=== PATIENT | female | born 1935 | race Caucasian/White ===

== ENCOUNTER 2017-05-23 05:25 | Inpatient (IN) | payer MEDICARE ==
[~2017-05-23 05:25] MED LIST: BUPIVACAINE INJ/PF LIPOSOME/PF 266 MG/20 ML SDV IJ PRN; CEFAZOLIN INJ 1 GM VIAL IV PRN; IBUPROFEN 800 MG/NS 250 ML IV PRN; LACTATED RINGERS 1000 ML IV PRN; LANSOPRAZOLE 15 MG TAB.RAP.DR PO PRN; LIDOCAINE 0.5% INJ-PF (5 MG/ML) 50 ML SDV SUBCUT PRN; OXYCODONE HCL SR 10 MG TABLET PO PRN; VANCOMYCIN HCL 1,000 MG in DEXTROSE 5%-WATER 250 ML IV PRN
[2017-05-23] MEDS ORDERED: LIDOCAINE 2% INJ-PF (20 MG/ML) 10 ML AMPUL ONE (06:41)
[2017-05-23] MEDS ORDERED: FENTANYL CITRATE INJ/PF 100 MCG/2 ML AMPUL ONE ×2 (06:42→09:54)
[2017-05-23] MEDS ORDERED: KETAMINE HCL INJ 500 MG/10 ML VIAL ONE (06:42)
[2017-05-23] MEDS ORDERED: MIDAZOLAM 2 MG/2 ML INJ ONE (06:42)
[2017-05-23] MEDS ORDERED: EPHEDRINE SULFATE INJ 50 MG/1 ML AMPULE ONE (06:43)
[2017-05-23] MEDS ORDERED: TRANEXAMIC ACID INJ/PF 1,000 MG/10 ML SDV IV ONE ×3 (06:43→10:06)
[2017-05-23] MEDS ORDERED: PROPOFOL INJ 200 MG/20 ML VIAL IV ONE (06:43)
[2017-05-23] MEDS ORDERED: ONDANSETRON HCL INJ/PF 4 MG/2 ML SDV ONE (06:43)
[2017-05-23] MEDS ORDERED: THROMBIN (BOVINE) 5000 UNIT EPITAXIS KIT ONE (06:49)
[2017-05-23] MEDS ORDERED: BUPIVACAINE INJ/PF LIPOSOME/PF 266 MG/20 ML SDV ONE (06:49)
[2017-05-23] MEDS ORDERED: THROMBIN (BOVINE) TOPICAL 20000 UNIT VIAL ONE (06:49)
[2017-05-23] MEDS ORDERED: MORPHINE SULFATE 10 MG/ML INJ IV PRN ×3 (07:49→09:43)
[2017-05-23] MEDS ORDERED: PROMETHAZINE HCL INJ 25 MG/1 ML VIAL IV PRN ×2 (07:49)
[2017-05-23] MEDS ORDERED: OXYCODONE-ACETAMINOPHEN 5-325 MG TABLET PO PRN ×2 (07:49)
[2017-05-23] MEDS ORDERED: DIPHENHYDRAMINE HCL 50 MG/ML VIAL IV PRN ×2 (07:49→09:43)
[2017-05-23] MEDS ORDERED: FENTANYL CITRATE INJ/PF 100 MCG/2 ML AMPUL IV PRN ×3 (07:49)
[2017-05-23] MEDS ORDERED: MEPERIDINE HCL/PF INJ 25 MG/1 ML DISP.SYRIN IV PRN (07:49)
[2017-05-23] MEDS ORDERED: ONDANSETRON HCL INJ/PF 4 MG/2 ML SDV IV PRN (07:49)
[2017-05-23] MEDS ORDERED: VANCOMYCIN HCL INJ 1000 MG VIAL ONE (09:10)
--- NOTE | 2017-05-23 09:42 | Operative Report ---
Operative Report DATE OF SURGERY: 05/23/17 PREOPERATIVE DIAGNOSIS: Failed left hip arthroplasty OPERATION: Revision left hip arthroplasty. Sciatic neuro lysis SURGEON: WILSON COON ANESTHESIA: Spinal TISSUE REMOVED OR ALTERED: Cultures to microbiology, implants to pathology ESTIMATED BLOOD LOSS: 200 PROCEDURE: Implants used: Kyree modular alevism stem 1 95 x 16 mm, 25 mm standard proximal body, 32 mm chrome cobalt head, 20 high wall [place] acetabular liner With the patient in the right lateral decubitus position on the operating table the left lower extremity hindquarter prepped and draped in a sterile fashion. A curvilinear incision made over the greater trochanter line with the previous approach the hip. Posterior approach is performed upon entering the capsule cultures are obtained. Sciatic nerve is traced from the sciatic notch down to the gluteal sling is protected throughout its course. Hip is dislocated and femoral head disimpacted. Debridement of the posterior aspect of the greater trochanteric region of the femur allows access to a hole in the femoral implant. This is used to connect an extractor and the extractor was used to remove the stem uneventfully. The acetabulum was exposed. The acetabular liner was removed using an osteotome. It is inspected. Is a 10 high wall 32 mm liner. The where superior and a high wall was posterior. A decision made at this point not to revise the acetabular component primarily at the patient's request. And instead I lies a [address] place this directly superior. There is impacted into position. Attention was turned back to the femur. In attempting to instrument the femoral canal it is clear that the existing stem had either broach the cortex already or had significantly weakened. The initial attempt instrument the canal was lead with an extra osseous extension. This is presumably related to the shelf performed at the end of the implant. Subsequently an extended osteotomies performed and access to the distal canal is assured. The distal canal secured with 2 distal cables. Initially the canal is open using flexible reamers until a 14 mm reamer is passed. Hopefully the conical reamers of the modular alevism stem are used beginning at 13 and increasing until 16 forward intended depth of 195 mm. This is calculated to bypass the cortical defect. Subsequently a 16 x 1 95 stem was impacted into position and its position and size are determined with intraoperative fluoroscopy and felt to be adequate. The proximal canal is then reamed and a 25 standard proximal body is impacted onto the alevism stem. A trial 32 mm head +0 neck extension is used and the hip was reduced. This re-creates preoperative leg length and provides adequate stability. The hip is dislocated one more time. The final chrome cobalt head, 32 mm standard neck is impacted onto the trunnion and the hip was reduced. It scope secured with pulse lavage. Is closed in layers using interrupted Vicryl followed by angeles. A sterile compressive dressing was applied and the patient's return to the PACU in satisfactory condition.
[2017-05-23] MEDS ORDERED: ONDANSETRON 4 MG TAB.RAPDIS PO PRN ×2 (09:43→10:30)
[2017-05-23] MEDS ORDERED: (PENDING PHARMACY ID) (Lisinopril/Hydrochlorothiazide [Lisinopril-Hctz 20-12.5 Mg Tab] 2 T PO SCH (10:00)
[2017-05-23] MEDS ORDERED: (PENDING PHARMACY ID) (Omeprazole [Omeprazole] 1 CAP) PO SCH (10:00)
[2017-05-23] MEDS ORDERED: GABAPENTIN 400 MG CAPSULE PO SCH (10:00)
[2017-05-23] MEDS ORDERED: FERROUS GLUCONATE PO SCH (10:00)
[2017-05-23] MEDS ORDERED: (PENDING PHARMACY ID) (Calcium Carbonate/Vitamin D3 [Calcium 500-Vit D3 200 Caplet] 1 TAB) PO SCH (10:00)
--- NOTE | 2017-05-23 10:43 | RADIOLOGY REPORT (SQ) ---
EXAM DESCRIPTION: FEMUR LEFT COMPLETED DATE/TIME: 05/23/2017 10:28 am REASON FOR STUDY: POST OP REVISION T84.091A [facility] COMPL OF INTERNAL LEFT HIP PROSTHESIS, INIT EN COMPARISON: None. NUMBER OF VIEWS: One view. TECHNIQUE: Two radiographic images acquired of the left femur to include hip and knee in at least on e projection. LIMITATIONS: None. FINDINGS: There are postsurgical changes with a left hip prosthesis in place. There is a fixation r od in place in the femur. There is a distal femoral fracture. There are no old films available for comparison. IMPRESSION: Postsurgical changes as described. Distal left femur fracture. TECHNICAL DOCUMENTATION: JOB ID: [id number] [employer]- All Rights Reserved
[2017-05-23] MEDS ORDERED: ACETAMINOPHEN 100 ML IV ONE (11:02)
--- NOTE | 2017-05-23 11:38 | RADIOLOGY REPORT (SQ) ---
EXAM DESCRIPTION: HIP IN OPERATING RM COMPLETED DATE/TIME: 05/23/2017 10:51 am REASON FOR STUDY: LEFT HIP REVISION ASSISTED WITH FLUORO IN OR T84.091A [facility] COMPL OF INTERNAL LEFT HIP PROSTHESIS, INIT EN COMPARISON: None. FLUOROSCOPY TIME: Less than 1 minute Spot images saved to PACS. TECHNIQUE: Intra-operative images acquired during surgical procedure to evaluate progress. NUMBER OF IMAGES: 6 LIMITATIONS: None. FINDINGS: Fluoroscopy was provided for intraoperative procedure. Please refer to the operative repo rt for further discussion. IMPRESSION: IMAGE(S) OBTAINED DURING PROCEDURE. COMMENT: Quality ID 145: Final reports for procedures using fluoroscopy that document radiation exp osure indices, or exposure time and number of fluorographic images (if radiation exposure indices are not available) Please consult full operative report of the attending physician for description of the procedure. TECHNICAL DOCUMENTATION: JOB ID: [id number] [employer]- All Rights Reserved
[2017-05-23] MEDS: GABAPENTIN 400 MG CAPSULE PO SCH ×3 (12:43→23:15)
[2017-05-23] MEDS: MORPHINE SULFATE 10 MG/ML INJ IV PRN ×2 (12:43→18:47)
[2017-05-23] MEDS: OXYCODONE HCL IR 5 MG TABLET PO PRN (13:31)
[2017-05-23] MEDS: IBUPROFEN 800 MG in NORMAL SALINE 250 ML IV SCH ×2 (13:46→23:16)
[2017-05-23 15:27] LABS: HEMATOCRIT 27.9 % (36.0-47.0); HEMOGLOBIN 9.4 g/dL (12.0-15.5); HGB HCT DIFFERENCE 0.3; MEAN CORPUSCULAR HEMOGLOBIN 31.8 pg (27.0-33.4); MEAN CORPUSCULAR HGB CONC 33.5 g/dL (32.0-36.0); MEAN CORPUSCULAR VOLUME 95 fl (80-97); RED BLOOD COUNT 2.94 10^6/uL (3.72-5.28); RED CELL DISTRIBUTION WIDTH 13.2 % (11.5-14.0); WHITE BLOOD COUNT 12.2 10^3/uL (4.0-10.5)
[2017-05-23 15:33] LABS: ANION GAP 8 (5-19); BLOOD UREA NITROGEN 31 mg/dL (7-20); CALCIUM 8.4 mg/dL (8.4-10.2); CARBON DIOXIDE 25 mmol/L (22-30); CHLORIDE 102 mmol/L (98-107); CREATININE RESULT 1.24 mg/dL (0.52-1.25); GLUCOSE 137 mg/dL (75-110); POTASSIUM 3.9 mmol/L (3.6-5.0); SODIUM 134.9 mmol/L (137-145)
[2017-05-23] MEDS ORDERED: RINGERS SOLUTION,LACTATED 500 ML IV ONE (16:00)
[2017-05-23] MEDS: RINGERS SOLUTION,LACTATED 1,000 ML IV PRN ×2 (16:03→16:05)
[2017-05-23] MEDS: ONDANSETRON HCL INJ/PF 4 MG/2 ML SDV IV PRN (20:54)
[2017-05-23] MEDS: MORPHINE SULFATE 10 MG/ML INJ IM PRN ×2 (20:54→22:20)
[2017-05-23] MEDS ORDERED: VANCOMYCIN HCL 1,000 MG in DEXTROSE 5%-WATER 250 ML IV ONE (21:43)
[2017-05-23] MEDS: RIVAROXABAN 10 MG TABLET PO SCH (21:45)
[2017-05-23] MEDS: SIMVASTATIN 10 MG TABLET PO SCH (21:45)
[2017-05-23] MEDS ORDERED: OXYCODONE HCL SR 10 MG TABLET PO SCH (22:00)
[2017-05-24] MEDS: MORPHINE SULFATE 10 MG/ML INJ IM PRN ×4 (00:11→15:25)
[2017-05-24] MEDS: ONDANSETRON HCL INJ/PF 4 MG/2 ML SDV IV PRN ×2 (03:52→23:37)
[2017-05-24] MEDS: LANSOPRAZOLE 30 MG TAB.RAP.DR PO SCH (05:41)
[2017-05-24] MEDS: IBUPROFEN 800 MG in NORMAL SALINE 250 ML IV SCH ×3 (05:41→23:37)
[2017-05-24] MEDS: GABAPENTIN 400 MG CAPSULE PO SCH ×3 (05:43→18:06)
[2017-05-24 06:56] LABS: HEMATOCRIT 29.8 % (36.0-47.0); HEMOGLOBIN 9.7 g/dL (12.0-15.5); HGB HCT DIFFERENCE -0.7; MEAN CORPUSCULAR HEMOGLOBIN 31.3 pg (27.0-33.4); MEAN CORPUSCULAR HGB CONC 32.5 g/dL (32.0-36.0); MEAN CORPUSCULAR VOLUME 96 fl (80-97); RED BLOOD COUNT 3.09 10^6/uL (3.72-5.28); RED CELL DISTRIBUTION WIDTH 13.3 % (11.5-14.0); WHITE BLOOD COUNT 9.4 10^3/uL (4.0-10.5)
[2017-05-24] MEDS ORDERED: NORMAL SALINE 1000 ML 500 ML IV ONE (07:00)
--- NOTE | 2017-05-24 07:01 | PDOC PROGRESS REPORT ---
Subjective Progress Note for:: 05/24/17 Subjective:: Patient complaining of epigastric distress radiating to the left pectoral region. She attributes this to her hiatal hernia and has experienced in the past. Normally she is able to get up and ambulate in the distress passes. However now on her nonambulatory status her issues continue. Physical Exam Vital Signs: Temp Pulse Resp BP Pulse Ox 36.3 C 97 18 127/40 H 98 05/24/17 03:47 05/24/17 03:47 05/24/17 03:47 05/24/17 03:47 05/24/17 03:47 Intake & Output 05/22/17 05/23/17 05/24/17 06:59 06:59 06:59 Intake Total 0 99378 Output Total 4570 Balance 0 6613 General appearance: PRESENT: mild distress Head exam: PRESENT: normocephalic Respiratory exam: PRESENT: unlabored Cardiovascular exam: PRESENT: RRR Pulses: PRESENT: +1 pedal pulses bilateral Vascular exam: PRESENT: normal capillary refill GI/Abdominal exam: PRESENT: soft Rectal exam: PRESENT: deferred Extremities exam: PRESENT: other - Right lower extremity dressing clean dry and intact. Leg lengths are equal. Distal neurovascular examination is intact. Neurological exam: PRESENT: alert, awake, oriented to person, oriented to place , oriented to time, oriented to situation. ABSENT: motor sensory deficit Psychiatric exam: PRESENT: appropriate affect, normal mood. ABSENT: homicidal ideation, suicidal ideation Skin exam: PRESENT: dry, intact, warm. ABSENT: cyanosis, rash Results Laboratory Results: 05/23/17 05/23/17 15:04 15:13 WBC 12.2 H RBC 2.94 L Hgb 9.4 L Hct 27.9 L MCV 95 MCH 31.8 MCHC 33.5 RDW 13.2 Plt Count 221 Sodium 134.9 L Potassium 3.9 Chloride 102 Carbon Dioxide 25 Anion Gap 8 BUN 31 H Creatinine 1.24 Est GFR ( Amer) 50 L Est GFR (Non-Af Amer) 42 L Glucose 137 H Calcium 8.4 Impressions: Femur X-Ray 05/23/17 00:00 IMPRESSION: Postsurgical changes as described. Distal left femur fracture. Hip X-Ray 05/23/17 00:00 IMPRESSION: IMAGE(S) OBTAINED DURING PROCEDURE. Status: Imported from PACS Assessment & Plan - Diagnosis (1) Mechanical complication of hip prosthesis Is this a current diagnosis for this admission?: Yes Plan: 81-year-old white female status post left revision hip arthroplasty for failed implant now with epigastric distress. Plan will be to convert from Zofran to Phenergan and see if we can alleviate some of her discomfort this way. We will also restrict the patient with touchdown weightbearing restriction on the left lower extremity. - Time Time Spent with patient: 15-24 minutes Anticipated discharge: Other Within: Other
[2017-05-24 07:17] LABS: ANION GAP 10 (5-19); BLOOD UREA NITROGEN 37 mg/dL (7-20); CALCIUM 8.7 mg/dL (8.4-10.2); CARBON DIOXIDE 25 mmol/L (22-30); CHLORIDE 101 mmol/L (98-107); CREATININE RESULT 1.67 mg/dL (0.52-1.25); GLUCOSE 119 mg/dL (75-110); POTASSIUM 4.4 mmol/L (3.6-5.0); SODIUM 136.1 mmol/L (137-145)
[2017-05-24] MEDS ORDERED: PROMETHAZINE HCL INJ 25 MG/1 ML VIAL IV PRN ×2 (07:32→07:55)
[2017-05-24] MEDS: LEVOTHYROXINE SODIUM 0.025 MG TABLET PO SCH (08:38)
[2017-05-24] MEDS: CALCIUM CARBONATE 250 MG/VITAMIN D3 125 UNIT TABLET PO SCH (10:57)
[2017-05-24] MEDS: FUROSEMIDE 40 MG TABLET PO SCH (10:57)
[2017-05-24] MEDS: LISINOPRIL 10 MG TABLET PO SCH (10:57)
[2017-05-24] MEDS: CITALOPRAM HYDROBROMIDE 20 MG TABLET PO SCH (10:57)
[2017-05-24] MEDS: FERROUS SULFATE 325 MG TABLET PO SCH (10:57)
[2017-05-24] MEDS: HYDROCHLOROTHIAZIDE 25 MG TABLET PO SCH (10:57)
[2017-05-24] MEDS: CYANOCOBALAMIN (VITAMIN B-12) 1,000 MCG TABLET PO SCH (10:57)
[2017-05-24] MEDS: RINGERS SOLUTION,LACTATED 1,000 ML IV PRN (15:18)
[2017-05-24] MEDS: PROMETHAZINE HCL INJ 25 MG/1 ML VIAL IV PRN (18:11)
[2017-05-24] MEDS ORDERED: NORMAL SALINE 1000 ML 1,000 ML IV ONE (18:15)
[2017-05-25] MEDS: MORPHINE SULFATE 10 MG/ML INJ IM PRN (00:04)
[2017-05-25] MEDS: OXYCODONE HCL IR 5 MG TABLET PO PRN (01:24)
[2017-05-25] MEDS: PROMETHAZINE HCL INJ 25 MG/1 ML VIAL IV PRN ×2 (03:06→08:31)
[2017-05-25] MEDS: RIVAROXABAN 10 MG TABLET PO SCH (03:10)
[2017-05-25] MEDS: SIMVASTATIN 10 MG TABLET PO SCH (03:10)
[2017-05-25] MEDS: GABAPENTIN 400 MG CAPSULE PO SCH ×3 (03:10→12:03)
[2017-05-25] MEDS: IBUPROFEN 800 MG in NORMAL SALINE 250 ML IV SCH (05:47)
[2017-05-25] MEDS: LANSOPRAZOLE 30 MG TAB.RAP.DR PO SCH (06:03)
[2017-05-25] MEDS ORDERED: TRAMADOL HCL 50 MG TABLET PO PRN (07:22)
[2017-05-25] MEDS: LEVOTHYROXINE SODIUM 0.025 MG TABLET PO SCH (07:36)
[2017-05-25 07:45] LABS: HEMATOCRIT 31.9 % (36.0-47.0); HEMOGLOBIN 10.6 g/dL (12.0-15.5); HGB HCT DIFFERENCE -0.1; MEAN CORPUSCULAR HEMOGLOBIN 31.6 pg (27.0-33.4); MEAN CORPUSCULAR HGB CONC 33.1 g/dL (32.0-36.0); MEAN CORPUSCULAR VOLUME 96 fl (80-97); RED BLOOD COUNT 3.34 10^6/uL (3.72-5.28); RED CELL DISTRIBUTION WIDTH 13.8 % (11.5-14.0); WHITE BLOOD COUNT 12.6 10^3/uL (4.0-10.5)
[2017-05-25] MEDS ORDERED: METOCLOPRAMIDE HCL INJ/PF 10 MG/2 ML SDV ONE (07:45)
[2017-05-25] MEDS ORDERED: METOCLOPRAMIDE HCL INJ/PF 10 MG/2 ML SDV IV SCH (09:00)
--- NOTE | 2017-05-25 09:40 | PDOC CONSULTATION ---
Consultation Consult Date: 05/25/17 Attending physician:: WILSON COON Consult reason:: persistent nausea and vomiting History of Present Illness Admission Date/PCP: 05/23/17 05:25 NINFA BEAULIEU DO Patient complains of: nausea and vomiting History of Present Illness: AURELIA BARBER is a 81 year old female with a history of reflux and hiatal hernia who is postop day 2 status post left hip revision. Since the procedure, she has been experiencing persistent nausea and vomiting, despite treatment with Zofran, Phenergan, and Reglan. At the time of my interview, she is drowsy. However, she was arousable enough to answer a few questions. She did not report abdominal pain. She did not report bright red blood per rectum or melanotic stools. She has not vomited angela blood. In her emesis bag, there is black/coffee ground emesis. Past Medical History Cardiac Medical History: Reports: Hypertension, Heart Murmur Denies: Atrial Fibrillation, Congestive Heart Failure, Coronary Artery Disease, Myocardial Infarction, Hyperlipidema, Peripheral Vascular Disease, Pulmonary Embolism Pulmonary Medical History: Reports: Asthma - twenty years ago Denies: Bronchitis, Chronic Obstructive Pulmonary Disease (COPD), Respiratory Failure, Sleep Apnea, Tuberculosis Endocrine Medical History: Reports: Hypothyroidism Denies: Hyperthyroidism Malignancy Medical History: Denies: Lung Cancer GI Medical History: Reports: Gastroesophageal Reflux Disease, Hiatal Hernia Denies: Crohn's Disease Musculoskeltal Medical History: Reports: Arthritis Denies: Fibromyalgia Past Surgical History Past Surgical History: Reports: Cholecystectomy, Hysterectomy Denies: Amputation, Appendectomy, Section, Colostomy, Coronary Artery Bypass Graft, Gastric Bypass Surgery, Herniorrhaphy, Mastectomy, Pacemaker, Tonsillectomy, Tubal Ligation Social History Smoking Status: Never Smoker Hx Recreational Drug Use: No Hx Prescription Drug Abuse: No - Advance Directive Resuscitation Status: Full Code Family History Parental Family History Reviewed: No Children Family History Reviewed: No Sibling(s) Family History Reviewed.: No Medication/Allergy Home Medications: Calcium Carbonate/Vitamin D3 [Calcium 500-Vit D3 200 Caplet] 1 tab PO DAILY Citalopram Hydrobromide [Celexa 20 mg Tablet] 20 mg PO DAILY 05/11/17 Cyanocobalamin (Vitamin B-12) [Vitamin B-12] 1 tab PO DAILY 05/11/17 Diclofenac Sodium [Voltaren 50 mg Tablet.dr] 1 tab PO DAILY 05/11/17 Ferrous Gluconate 1 tab PO DAILY 05/11/17 Furosemide [Lasix] 40 mg PO DAILY 05/11/17 Gabapentin 1 cap PO QID 05/11/17 Levothyroxine Sodium 25 mcg PO QAM 05/11/17 Lisinopril/Hydrochlorothiazide [Lisinopril-Hctz 20-12.5 mg Tab] 1 tab PO DAILY 05/11/17 Omeprazole 20 mg PO DAILY 05/11/17 Simvastatin 10 mg PO QHS 05/11/17 Tramadol HCl 50 mg PO BID 05/11/17 Allergies/Adverse Reactions: No Known Allergies Allergy (Unverified 05/23/17 07:59) Review of Systems Gastrointestinal: PRESENT: coffee ground emesis, nausea, vomiting. ABSENT: abdominal pain, bloating, constipation, diarrhea, hematemesis, hematochezia, melena Physical Exam Vital Signs: Temp Pulse Resp BP Pulse Ox 98.4 F 105 H 16 143/56 H 98 05/25/17 00:05 05/25/17 00:05 05/25/17 00:05 05/25/17 00:05 05/25/17 00:05 Intake & Output 05/24/17 05/25/17 05/26/17 06:59 06:59 06:59 Intake Total 90045 7407 Output Total 4570 325 Balance 6613 7082 General appearance: PRESENT: no acute distress, cooperative, well-developed, well-nourished Head exam: PRESENT: atraumatic, normocephalic Respiratory exam: PRESENT: clear to auscultation leanne. ABSENT: rales, rhonchi, wheezes Cardiovascular exam: PRESENT: RRR. ABSENT: diastolic murmur, rubs, systolic murmur GI/Abdominal exam: PRESENT: hypoactive bowel sounds, soft. ABSENT: distended, firm, guarding, tenderness Rectal exam: PRESENT: deferred Neurological exam: PRESENT: alert, oriented to person, oriented to place, oriented to time, oriented to situation Results Laboratory Results: 05/25/17 07:16 05/24/17 06:24 05/25/17 05/25/17 05:58 07:16 WBC Cancelled 12.6 H RBC Cancelled 3.34 L Hgb Cancelled 10.6 L Hct Cancelled 31.9 L MCV Cancelled 96 MCH Cancelled 31.6 MCHC Cancelled 33.1 RDW Cancelled 13.8 Plt Count Cancelled 207 Impressions: Femur X-Ray 05/23/17 00:00 IMPRESSION: Postsurgical changes as described. Distal left femur fracture. Hip X-Ray 05/23/17 00:00 IMPRESSION: IMAGE(S) OBTAINED DURING PROCEDURE. Assessment & Plan - Diagnosis (1) Intractable nausea and vomiting Qualifiers: Vomiting type: unspecified Qualified Code(s): R11.2 - Nausea with vomiting , unspecified Is this a current diagnosis for this admission?: Yes Plan: Because she is drowsy, I will discontinue sedating medications such as Benadryl , metoclopramide, morphine, and promethazine. I suspect that her symptoms are likely due to a combination of narcotics is well is high-dose NSAIDs. With that in mind, continue proton pump inhibitor. I will change diet to clear liquids. She needs IV fluids because there has been a increase in her creatinine suggestive of mild volume depletion. Recheck labs tomorrow. Continue Tylenol as needed for pain. Check lipase. Check abdominal x-ray flat/ upright to rule out obstruction. (2) Hypertension Qualifiers: Hypertension type: essential hypertension Qualified Code(s): I10 - Essential (primary) hypertension Is this a current diagnosis for this admission?: Yes Plan: Hold lisinopril/hydrochlorothiazide. Due to her nausea, vomiting, and increase in creatinine, she is probably volume depleted. Start Toprol XL 25 mg daily (3) Hypothyroidism Qualifiers: Hypothyroidism type: acquired Qualified Code(s): E03.9 - Hypothyroidism, unspecified Is this a current diagnosis for this admission?: Yes Plan: Continue levothyroxine. Check TSH (4) Acute kidney injury Is this a current diagnosis for this admission?: Yes Plan: Due to volume depletion. Cannot rule out impact from NSAIDs. Recheck labs after adequate hydration. - Time Time Spent: 50 to 70 Minutes Medications reviewed and adjusted accordingly: Yes
[2017-05-25] MEDS ORDERED: 1/2 NORMAL SALINE 1,000 ML IV PRN (09:43)
[2017-05-25] MEDS: CITALOPRAM HYDROBROMIDE 20 MG TABLET PO SCH (09:45)
[2017-05-25] MEDS: HYDROCHLOROTHIAZIDE 25 MG TABLET PO SCH (09:45)
[2017-05-25] MEDS: CYANOCOBALAMIN (VITAMIN B-12) 1,000 MCG TABLET PO SCH (09:45)
[2017-05-25] MEDS: FERROUS SULFATE 325 MG TABLET PO SCH (09:45)
[2017-05-25] MEDS: LISINOPRIL 10 MG TABLET PO SCH (09:45)
[2017-05-25] MEDS: FUROSEMIDE 40 MG TABLET PO SCH (09:45)
[2017-05-25] MEDS: CALCIUM CARBONATE 250 MG/VITAMIN D3 125 UNIT TABLET PO SCH (09:45)
[2017-05-25] MEDS ORDERED: ACETAMINOPHEN 325 MG TABLET PO PRN (09:53)
[2017-05-25] MEDS ORDERED: PROMETHAZINE HCL INJ 25 MG/1 ML VIAL IV PRN (09:54)
[2017-05-25] MEDS ORDERED: PANTOPRAZOLE SODIUM 40 MG VIAL IV ONE (11:00)
[2017-05-25 11:04] LABS: ALANINE AMINOTRANSFERASE 49 U/L (9-52); ALBUMIN 2.7 g/dL (3.5-5.0); ALKALINE PHOSPHATASE 83 U/L (38-126); ANION GAP 11 (5-19); ASPARTATE AMINO TRANSFERASE 60 U/L (14-36); BILIRUBIN,DIRECT 0.6 mg/dL (0.0-0.4); BILIRUBIN,TOTAL 0.8 mg/dL (0.2-1.3); BLOOD UREA NITROGEN 48 mg/dL (7-20); CALCIUM 8.3 mg/dL (8.4-10.2); CARBON DIOXIDE 25 mmol/L (22-30); CHLORIDE 102 mmol/L (98-107); CREATININE RESULT 2.25 mg/dL (0.52-1.25); GLUCOSE 127 mg/dL (75-110); LIPASE 172.7 U/L (23-300); PHOSPHORUS 3.9 mg/dL (2.5-4.5); POTASSIUM 4.1 mmol/L (3.6-5.0); SODIUM 138.1 mmol/L (137-145); TOTAL PROTEIN 4.8 g/dL (6.3-8.2)
--- NOTE | 2017-05-25 12:36 | RADIOLOGY REPORT (SQ) ---
EXAM DESCRIPTION: ACUTE ABDOMEN SERIES COMPLETED DATE/TIME: 05/25/2017 11:52 am REASON FOR STUDY: nausea and vomiting T84.091A [facility] COMPL OF INTERNAL LEFT HIP PROSTHESIS, INIT EN COMPARISON: None. NUMBER OF VIEWS: Three views. TECHNIQUE: Frontal chest, supine abdomen and upright abdomen radiographic images acquired. LIMITATIONS: None. FINDINGS: CHEST: There is bibasilar atelectasis or scarring. Upper lobes are hyperlucent from obstr uctive disease. Mild cardiomegaly. In the retrocardiac region, a 15 cm density with air-fluid level is present likely the stomach in a l arge retrocardiac hernia. Upper GI with water-soluble contrast recommended to evaluate for gastric o utlet obstruction or gastric torsion. This finding was discussed with Dr. Grimes. FREE AIR: None. No abnormal gas collections. BOWEL GAS PATTERN: Nonobstructive pattern. No dilated loops or air fluid levels. CALCIFICATIONS: No suspicious calcifications. HARDWARE: Clips right upper quadrant post cholecystectomy. Old left hip replacement and acetabular f ixation plate SOFT TISSUES: No gross mass or suggestion of organomegaly. BONES: Osteoporotic. Convex rightward lumbar curvature OTHER: No other significant finding. IMPRESSION: Retrocardiac air-fluid level, worrisome for a large hiatal hernia containing the stomach , with gastric outlet obstruction TECHNICAL DOCUMENTATION: JOB ID: [id number] [employer]- All Rights Reserved
[2017-05-25] MEDS ORDERED: PHARMACY COMMUNICATION ORDER MC NR (14:15)
--- NOTE | 2017-05-25 14:20 | RADIOLOGY REPORT (SQ) ---
EXAM DESCRIPTION: CT CHEST WITHOUT COMPLETED DATE/TIME: 05/25/2017 1:53 pm REASON FOR STUDY: suspected gastric volvulus T84.091A [facility] COMPL OF INTERNAL LEFT HIP PROSTHESIS, I NIT EN COMPARISON: Two-view chest same date Limited Omnipaque upper GI same date TECHNIQUE: CT scan performed of the chest without intravenous contrast. Images reviewed with lung, soft tissue and bone windows. Reconstructed coronal and sagittal MPR images reviewed. All images st ored on PACS. All CT scanners at this facility use dose modulation, iterative reconstruction, and/or weight based d osing when appropriate to reduce radiation dose to as low as reasonably achievable (ALARA). [facility]: Dose Right [facility]: CareDose [facility]: Dose Right [facility]: Teradose 4D [facility]: Smart Technologies RADIATION DOSE: Up-to-date CT equipment and radiation dose reduction techniques were employed. CTDIv ol: 9.6 mGy. DLP: 414 mGy-cm. mGy. LIMITATIONS: No technical limitations. FINDINGS: This study was performed immediately after limited upper GI with Omnipaque contrast. Patient has a paraesophageal hernia which contains the body and antrum of the stomach. The fundus is under the left hemidiaphragm. There is a gastric outlet obstruction where the antrum/pylorus passes inferiorly through the diaphragmatic hiatus ventral to the remainder of the herniated stomach. No o ral contrast from the swelling study is seen in the duodenum or jejunum. The esophagus is filled with contrast. These images were reviewed with Dr. Lundy, the surgeon. Report called to Dr. Grimes. LUNGS AND PLEURA: Dense consolidation in the right and left posterior lung bases, atelectasis versus pneumonia. Trace bilateral pleural effusions are present. HILAR AND MEDIASTINAL STRUCTURES: No identified masses or abnormal nodes. No obvious aneurysm. HEART AND VASCULAR STRUCTURES: No aneurysm. No pericardial effusion. UPPER ABDOMEN: Post cholecystectomy. THYROID AND OTHER SOFT TISSUES: No masses. No adenopathy. BONES: Thoracic and lumbar scoliosis HARDWARE: None in the chest. OTHER: No other significant findings. IMPRESSION: Paraesophageal hernia, the GE junction and stomach fundus are at the level of the hiatus . Stomach fundus is under the left hemidiaphragm, body and antrum are above the hemidiaphragms. The re is gastric outlet obstruction where the antrum/pylorus crosses through the diaphragmatic hiatus ba ck into the abdomen. Esophagus still filled with oral contrast Bilateral lower lobe consolidation worrisome for pneumonia. Trace bilateral pleural effusions. TECHNICAL DOCUMENTATION: JOB ID: [id number] Quality ID # 436: Final reports with documentation of one or more dose reduction techniques (e.g., Au tomated exposure control, adjustment of the mA and/or kV according to patient size, use of iterative reconstruction technique) 2010 [employer]- All Rights Reserved
--- NOTE | 2017-05-25 14:34 | RADIOLOGY REPORT (SQ) ---
EXAM DESCRIPTION: UGI SERIES COMPLETED DATE/TIME: 05/25/2017 2:21 pm REASON FOR STUDY: possible Gastric outlet obstruction T84.091A [facility] COMPL OF INTERNAL LEFT HIP PROS THESIS, INIT EN COMPARISON: Three-way abdomen series 05/25/2017 TECHNIQUE: Omnipaque upper GI was performed with fluoroscopic spot films. LIMITATIONS: None. FLUOROSCOPY TIME: FLUORO TIME: 10 seconds 18 digital series of images saved to PACS. FINDINGS: Very limited study. The esophagus is distended. Contrast trickles into the stomach fundu s which is below the left hemidiaphragm. Contrast is seen in the gastric body and antrum above the h emidiaphragms. No contrast passes from the gastric antrum above the hemidiaphragm into the right upp er quadrant. Findings are worrisome for obstructed para esophageal hernia. Findings discussed with Dr. Grimes. Dense consolidation both lung bases atelectasis versus pneumonia. IMPRESSION: Findings worrisome for large para esophageal hernia with gastric outlet obstruction. COMMENT: Quality ID 145: Final reports for procedures using fluoroscopy that document radiation exp osure indices, or exposure time and number of fluorographic images (if radiation exposure indices are not available) TECHNICAL DOCUMENTATION: JOB ID: [id number] [employer]- All Rights Reserved
[2017-05-25] MEDS ORDERED: TRAMADOL HCL 50 MG TABLET NG PRN (15:00)
[2017-05-25] MEDS ORDERED: ACETAMINOPHEN 325 MG TABLET NG PRN (15:00)
[2017-05-25 15:32] VITALS: BP 118/91
[2017-05-25] MEDS ORDERED: GABAPENTIN 400 MG CAPSULE NG SCH (18:00)
--- NOTE | 2017-05-25 19:27 | RADIOLOGY REPORT (SQ) ---
EXAM DESCRIPTION: CT ABDOMEN NO ORAL OR IV COMPLETED DATE/TIME: 05/25/2017 1:53 pm REASON FOR STUDY: SUSPECTED GASTRIC VULVULOUS T84.091A [facility] COMPL OF INTERNAL LEFT HIP PROSTHESIS, INIT EN COMPARISON: None. TECHNIQUE: CT scan of the abdomen performed without intravenous contrast and with oral contrast. Im ages reviewed with lung, soft tissue, and bone windows. Reconstructed coronal and sagittal MPR image s reviewed. All images stored on PACS. All CT scanners at this facility use dose modulation, iterative reconstruction, and/or weight based d osing when appropriate to reduce radiation dose to as low as reasonably achievable (ALARA). [facility]: Dose Right [facility]: CareDose [facility]: Dose Right [facility]: Teradose 4D [facility]: [employer] RADIATION DOSE: mGy. LIMITATIONS: None. FINDINGS: LOWER CHEST: Large hiatal hernia, bilateral pleural effusions and basilar airspace disease is again noted. Please refer to the chest CT for further discussion. NONCONTRASTED LIVER, SPLEEN, ADRENALS: Evaluation limited by lack of IV contrast. No identified sign ificant masses. PANCREAS: The pancreas is atrophic. GALLBLADDER: Surgically absent. RIGHT KIDNEY AND URETER: No suspicious masses. Assessment limited by lack of IV contrast. No signif icant calcifications. No hydronephrosis or hydroureter. LEFT KIDNEY AND URETER: No suspicious masses. Assessment limited by lack of IV contrast. No signifi cant calcifications. No hydronephrosis or hydroureter. AORTA AND RETROPERITONEUM: No aneurysm. No retroperitoneal masses or adenopathy. BOWEL AND PERITONEAL CAVITY: There is mesenteric inflammation in the mid abdomen etiology of this is uncertain. There is no larger small-bowel distention. APPENDIX: Not visualized. ABDOMINAL WALL: There is an umbilical hernia containing omental fat only. BONES: No significant findings. OTHER: No other significant finding. IMPRESSION: 1. Large hiatal hernia. Mild mesenteric inflammation etiology of this is uncertain. 2. Bilateral pleural effusions and basilar infiltrates. TECHNICAL DOCUMENTATION: JOB ID: [id number] Quality ID # [id number]: Final reports with documentation of one or more dose reduction techniques (e.g., Au tomated exposure control, adjustment of the mA and/or kV according to patient size, use of iterative reconstruction technique) 2010 [employer]- All Rights Reserved
[2017-05-25] MEDS ORDERED: RIVAROXABAN 10 MG TABLET NG SCH (22:00)
[2017-05-25] MEDS ORDERED: PANTOPRAZOLE SODIUM 40 MG VIAL IV SCH (22:00)
[2017-05-25] MEDS ORDERED: SIMVASTATIN 10 MG TABLET NG SCH (22:00)
[2017-05-26] MEDS ORDERED: LEVOTHYROXINE SODIUM 0.025 MG TABLET NG SCH (08:00)
[2017-05-26] MEDS ORDERED: FERROUS SULFATE LIQUID 300 MG/5 ML UDC NG SCH (10:00)
[2017-05-26] MEDS ORDERED: CITALOPRAM HYDROBROMIDE 20 MG TABLET NG SCH (10:00)
[2017-05-26] MEDS ORDERED: CALCIUM CARBONATE 250 MG/VITAMIN D3 125 UNIT TABLET NG SCH (10:00)
[2017-05-26] MEDS ORDERED: CYANOCOBALAMIN (VITAMIN B-12) 1,000 MCG TABLET NG SCH (10:00)
== END 2017-05-25 17:41 | disposition short-term general hospital (02) | DRG 468 ==
LOC: INOR 05:25 → 4S 12:26
PROVIDERS: ADMIT Orthopaedic Surgery; ATTEND Orthopaedic Surgery
PROC: 0SPB0JZ Removal of Synthetic Substitute from Left Hip Joint, Open Approach (ICD-10-PCS; 2017-05-23)
PROC: 0SRB0JA Replacement of Left Hip Joint with Synthetic Substitute, Uncemented, Open Approach (ICD-10-PCS; principal; 2017-05-23 07:30)
DX: T84.091A Other mechanical complication of internal left hip prosthesis, initial encounter (principal); E03.9 Hypothyroidism, unspecified; E78.5 Hyperlipidemia, unspecified; D64.9 Anemia, unspecified; F51.04 Psychophysiologic insomnia; I12.9 Hypertensive chronic kidney disease with stage 1 through stage 4 chronic kidney disease, or unspecified chronic kidney disease; N18.9 Chronic kidney disease, unspecified; L30.9 Dermatitis, unspecified; M17.11 Unilateral primary osteoarthritis, right knee; M47.9 Spondylosis, unspecified; M48.07 Spinal stenosis, lumbosacral region; M54.31 Sciatica, right side; M81.0 Age-related osteoporosis without current pathological fracture; Z96.642 Presence of left artificial hip joint; Z90.710 Acquired absence of both cervix and uterus; K21.9 Gastro-esophageal reflux disease without esophagitis; Z79.899 Other long term (current) drug therapy
CPT/HCPCS: 01215; 36415; 71250; 74022; 74150; 74247; 80048; 80053; 83690; 84100; 84132; 85027; 86850; 86900; 86901; 87070; 87075; 87205; 94799; C9290; G8978-GP; G8979-GP; J0131; J0690; J1741; J2250; J2270; J2405; J2550; J2704; J2765; J3010; J3370; J3490; J7030; J7050; J7060; J7120; S0119; S0164

== ENCOUNTER → 2019-10-29 | Outpatient (CLI) | payer MEDICARE ==
--- NOTE | 2019-10-29 13:46 | RADIOLOGY REPORT (SQ) ---
EXAM DESCRIPTION: CT CHEST WITH COMPLETED DATE/TIME: 10/29/2019 1:02 pm REASON FOR STUDY: OTHER SPECIFIED POSTPROCEDURAL STATES (Z98.890), DIAPHRAGMATIC HERNIA WITH R19.7 DIARRHEA, UNSPECIFIED Z98.890 OTHER SPECIFIED POSTPROCEDURAL STATES R63.5 ABNORMAL WEIGHT GAIN COMPARISON: 05/25/2017 TECHNIQUE: CT scan of the chest performed using helical scanning technique with dynamic intravenous contrast injection. Images reviewed with lung, soft tissue and bone windows. Reconstructed coronal and sagittal MPR and MIP images reviewed. All images stored on PACS. All CT scanners at this facility use dose modulation, iterative reconstruction, and/or weight based d osing when appropriate to reduce radiation dose to as low as reasonably achievable (ALARA). [facility]: Dose Right [facility]: CareDose [facility]: Dose Right [facility]: Teradose 4D [facility]: [employer] CONTRAST TYPE AND DOSE: 88 mL Omnipaque 350- low osmolar. RENAL FUNCTION: Creatinine 1.1 RADIATION DOSE: . LIMITATIONS: None. FINDINGS: LUNGS AND PLEURA: No infiltrate, effusion, or mass. HILAR AND MEDIASTINAL STRUCTURES: Diaphragmatic hernia has been repaired. No mediastinal mass or arielle nopathy. HEART AND VASCULAR STRUCTURES: No aneurysm or dissection. No central pulmonary emboli. No pericardi al effusion. HARDWARE: None in the chest. UPPER ABDOMEN: See separate report of the CT of the abdomen. THYROID AND OTHER SOFT TISSUES: No masses. No adenopathy. BONES: Scoliosis. No osseous lesions. OTHER: No other significant finding. IMPRESSION: Diaphragmatic hernia has been repaired. Mild scoliosis. No acute finding in the thorax . TECHNICAL DOCUMENTATION: JOB ID: [id number] Quality ID # [id number]: Final reports with documentation of one or more dose reduction techniques (e.g., Au tomated exposure control, adjustment of the mA and/or kV according to patient size, use of iterative reconstruction technique) 2010 [employer]- All Rights Reserved Reading location - IP/workstation name: [email or web address]
--- NOTE | 2019-10-29 14:52 | RADIOLOGY REPORT (SQ) ---
EXAM DESCRIPTION: CT ABD/PELVIS WITH IV ORAL COMPLETED DATE/TIME: 10/29/2019 1:01 pm REASON FOR STUDY: DIARRHEA, UNSPECIFIED (R19.7), OTHER SPECIFIED POSTPROCEDURAL STATES (Z98.8 R19.7 DIARRHEA, UNSPECIFIED Z98.890 OTHER SPECIFIED POSTPROCEDURAL STATES R63.5 ABNORMAL WEIGHT GAIN COMPARISON: CT of the abdomen pelvis with contrast from 05/25/2017. TECHNIQUE: CT scan of the abdomen and pelvis performed using helical scanning technique with dynamic intravenous contrast injection. No oral contrast. Images reviewed with lung, soft tissue, and bone windows. Reconstructed coronal and sagittal MPR images reviewed. Delayed images for evaluation of the urinary system also acquired. All images stored on PACS. All CT scanners at this facility use dose modulation, iterative reconstruction, and/or weight based d osing when appropriate to reduce radiation dose to as low as reasonably achievable (ALARA). [facility]: Dose Right [facility]: CareDose [facility]: Dose Right [facility]: Teradose 4D [facility]: [place] CONTRAST TYPE AND DOSE: Contrast/concentration: Isovue 350.00 mg/ml; Total Contrast Delivered: 88.0 ml; Total Saline Delivered: 70.0 ml RENAL FUNCTION: Creatinine 1.1 milligrams/deciliter. RADIATION DOSE: CT Rad equipment meets quality standard of care and radiation dose reduction techniq ues were employed. CTDIvol: 5.4 - 14.7 mGy. DLP: 2326 mGy-cm.. LIMITATIONS: None. FINDINGS: LOWER CHEST: Refer to separate report of the CT of the chest. LIVER: The morphology of the liver is non cirrhotic. The 1.6 by 1.6 cm hypervascular lesion at the j unction of segments 2 and 3 of the liver (image 22 of series 3) is stable from the prior CT; the lesi on equilibrate with the hepatic parenchyma on the other phases of contrast enhancement. The portal v eins are patent. SPLEEN: No splenomegaly or splenic mass. There is a 1.3 cm accessory splenule in the splenic hilum. PANCREAS: No abnormality. GALLBLADDER: The gallbladder is surgically absent. The degree of dilatation of the extra- and intrah epatic bile ducts is unchanged ; for reference the common hepatic duct measures up to 18 mm in diamet er. ADRENAL GLANDS: No mass or asymmetry. RIGHT KIDNEY AND URETER: No solid masses. No calcifications. No hydronephrosis or hydroureter. LEFT KIDNEY AND URETER: No solid masses. No calcifications. No hydronephrosis or hydroureter. AORTA AND VESSELS: No aneurysm or dissection of the abdominal aorta. RETROPERITONEUM: No retroperitoneal adenopathy, hemorrhage or mass. BOWEL AND PERITONEAL CAVITY: Colonic diverticulosis without diverticulitis. There is no bowel obstru ction, bowel wall thickening or pericolonic/ perienteric inflammation. There is no mesenteric adenop athy, free intraperitoneal fluid or mesenteric/ omental inflammation. APPENDIX: Unable to identify the appendix. PELVIS: Evaluation of the pelvis is limited due to the artifact from the left hip prosthesis. The wa ter attenuation 4.4 x 3.3 cm lesion in the left adnexum is unchanged. The urinary bladder is partial ly distended. ABDOMINAL WALL: No masses or hernias. BONES: Unchanged dextroconvex scoliotic curvature of the lumbar spine. OTHER: No other finding. IMPRESSION: 1. No acute intra-abdominal abnormality. 2. 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 3. Colonic diverticulosis without diverticulitis. 4. Stable 4.4 x 3.3 cm water attenuation lesion in the left adnexum. TECHNICAL DOCUMENTATION: JOB ID: [id number] Quality ID # [id number]: Final reports with documentation of one or more dose reduction techniques (e.g., Au tomated exposure control, adjustment of the mA and/or kV according to patient size, use of iterative reconstruction technique) 2010 [employer]- All Rights Reserved Reading location - IP/workstation name: [email or web address], [email or web address]
== END ==
LOC: RAD 12:23
PROVIDERS: ATTEND Surgery
DX: K57.30 Diverticulosis of large intestine without perforation or abscess without bleeding (principal); R19.7 Diarrhea, unspecified; K44.1 Diaphragmatic hernia with gangrene; K76.9 Liver disease, unspecified; R63.5 Abnormal weight gain; Z98.890 Other specified postprocedural states; Z87.19 Personal history of other diseases of the digestive system
CPT/HCPCS: 71260; 74177; 82565